=== PATIENT | female | born 1985 ===

== ENCOUNTER 2025-04-03 07:09 | Outpatient (CLI) | payer OTHER | END 2025-04-03 07:10 | disposition home or self-care (01) | LOC: PRENATAL 07:09 | PROVIDERS: ATTEND Obstetrics & Gynecology Maternal & Fetal Medicine | DX: O44.00 Complete placenta previa NOS or without hemorrhage, unspecified trimester (principal); O36.8199 Decreased fetal movements, unspecified trimester, other fetus; O34.10 Maternal care for benign tumor of corpus uteri, unspecified trimester; Z3A.29 29 weeks gestation of pregnancy ==